=== PATIENT | male | born 1950 | race Caucasian/White ===

== ENCOUNTER → 2016-11-03 | Outpatient (CLI) | payer OTHER | LOC: BMCIMAGING 10:51 | PROVIDERS: ATTEND Internal Medicine | DX: R06.02 Shortness of breath (principal) ==

== ENCOUNTER → 2016-11-10 | Outpatient (CLI) | payer OTHER | LOC: BHFA 10:45 | PROVIDERS: ATTEND Internal Medicine Cardiovascular Disease | DX: R06.02 Shortness of breath (principal) ==

== ENCOUNTER → 2017-02-04 | Outpatient (CLI) | payer OTHER | LOC: BHFA 13:00 | PROVIDERS: ATTEND Internal Medicine Critical Care Medicine | DX: J45.909 Unspecified asthma, uncomplicated (principal) | CPT/HCPCS: 94060; 94070; 94726; 94729; J7674 ==

== ENCOUNTER → 2017-02-05 | Outpatient (CLI) | payer OTHER | LOC: FIMAGING 09:43 | PROVIDERS: ATTEND Internal Medicine | DX: R10.11 Right upper quadrant pain (principal); K76.0 Fatty (change of) liver, not elsewhere classified ==

== ENCOUNTER 2017-02-12 17:36 | Emergency (ER) | payer OTHER ==
--- NOTE | 2017-02-12 17:53 | EDPHY ---
H & P Stated Complaint: right side abdominal pain Time Seen by Provider: 02/12/17 17:52 HPI/ROS: CHIEF COMPLAINT: Abdominal pain HISTORY OF PRESENT ILLNESS: The patient presents to the ED with a 2 day history of acute right-sided abdominal pain. The patient has had a history of mild chronic abdominal pain over the past several months. The patient reports that over the past day he has had some chills. He denies nausea, vomiting or diarrhea. The patient denies prior history of significant abdominal surgery. The patient denies history of significant drug or alcohol use. Patient reports that his symptoms are currently mild in nature. His pain appears to be localized to the right lower quadrant. REVIEW OF SYSTEMS: A comprehensive 10 point review of systems is otherwise negative aside from elements mentioned in the history of present illness. Source: Patient Exam Limitations: No limitations - Personal History Current Tetanus Diphtheria and Acellular Pertussis (TDAP): Yes - Medical/Surgical History Hx Asthma: No Hx Chronic Respiratory Disease: Yes Hx Diabetes: No Hx Cardiac Disease: Yes Hx Renal Disease: No Hx Cirrhosis: No Hx Alcoholism: No Hx HIV/AIDS: No Hx Splenectomy or Spleen Trauma: No Other PMH: fatty live, high cholesterol, HTN , - Social History Smoking Status: Former smoker - Physical Exam Exam: General Appearance: Alert, no distress Eyes: Pupils equal and round no pallor or injection ENT, Mouth: Mucous membranes moist Respiratory: There are no retractions, lungs are clear to auscultation Cardiovascular: Regular rate and rhythm Gastrointestinal: Mild tenderness to deep palpation in the right lower quadrant , no peritoneal signs, no rebound, no guarding Neurological: A&O, normal motor function, normal sensory exam, normal cranial nerves Skin: Warm and dry, no rashes Musculoskeletal: Neck is supple nontender Extremities: symmetrical, full range of motion Constitutional: Initial Vital Signs Temperature (C) 36.5 C 02/12/17 17:44 Heart Rate 71 02/12/17 17:44 Respiratory Rate 16 02/12/17 17:44 Blood Pressure 194/103 H 02/12/17 17:44 O2 Sat (%) 99 02/12/17 17:44 O2 Delivery Mode Room Air Allergies/Adverse Reactions: No Known Allergies Allergy (Unverified 05/19/10 07:57) Home Medications: Medication Instructions Recorded Hydrocodone Bit/Acetaminophen 1 tab PO Q4-6PRN #15 tab 09/10/09 [LORTAB5/325] LORazepam 09/10/09 Lexapro 09/10/09 Famciclovir [Famvir 500 mg] 500 mg PO BID 7 Days 05/19/10 Feurocet 05/19/10 Hydrocodone Bit/Acetaminophen 1 each PO Q3-4PRN PRN #25 tablet 05/19/10 [Vicodin 5-500 Tablet] Gemfibrozil 02/12/17 Ibuprofen [Motrin (*)] 600 mg PO Q6PRN 02/12/17 Medical Decision Making - Diagnostics Imaging Results: Imaging Impressions Abdomen CT 02/12/17 18:18 Impression: 1. No acute findings in the abdomen or pelvis. 2. Constipation 3. Moderate hiatal hernia. 4. Fatty liver 5. Additional findings as above.. Findings discussed with Dr. Ignacio Hylton on February 12, 2017 at 1940 hours. ED Course/Re-evaluation: The patient presents to the ED for evaluation of acutely worsening chronic abdominal pain. Patient is afebrile and has stable vital signs. The patient's laboratory studies and urinalysis are unremarkable. Given the patient's tenderness, he was taken for CT scan of the abdomen pelvis which demonstrates no evidence of acute disease specifically no evidence of appendicitis, perforation, obstruction or diverticulitis. The patient did have serial examinations performed by myself in the ED. At this point time the etiology of this pain is somewhat uncertain. I do feel that he should continue to work with his primary care provider for evaluation of the symptoms. A referral to Gastroenterology may be indicated. The patient is instructed to return to the ED for markedly worsening symptoms or other concerns. Patient did receive IV morphine while in the emergency department. He also received a L of normal saline. Differential Diagnosis: Differential diagnosis considered includes pancreatitis, perforation, obstruction, gastritis - Data Points Laboratory Results: Laboratory Results 02/12/17 17:53 02/12/17 17:53 02/12/17 02/12/17 02/12/17 18:30 17:53 17:53 WBC 5.83 10^3/uL 10^3/uL (3.80-9.50) RBC 4.88 10^6/uL 10^6/uL (4.40-6.38) Hgb 12.0 g/dL L g/dL (13.7-17.5) Hct 38.9 % L % (40.0-51.0) MCV 79.7 fL L fL (81.5-99.8) MCH 24.6 pg L pg (27.9-34.1) MCHC 30.8 g/dL L g/dL (32.4-36.7) RDW 17.4 % H % (11.5-15.2) Plt Count 376 10^3/uL 10^3/uL (150-400) MPV 10.2 fL fL (8.7-11.7) Neut % (Auto) 53.9 % % (39.3-74.2) Lymph % (Auto) 32.8 % % (15.0-45.0) Crook % (Auto) 10.5 % % (4.5-13.0) Eos % (Auto) 2.1 % % (0.6-7.6) Baso % (Auto) 0.5 % % (0.3-1.7) Nucleat RBC Rel Count 0.0 % % (0.0-0.2) Absolute Neuts (auto) 3.15 10^3/uL 10^3/uL (1.70-6.50) Absolute Lymphs (auto) 1.91 10^3/uL 10^3/uL (1.00-3.00) Absolute Monos (auto) 0.61 10^3/uL 10^3/uL (0.30-0.80) Absolute Eos (auto) 0.12 10^3/uL 10^3/uL (0.03-0.40) Absolute Basos (auto) 0.03 10^3/uL 10^3/uL (0.02-0.10) Absolute Nucleated RBC 0.00 10^3/uL 10^3/uL (0-0.01) Immature Gran % 0.2 % % (0.0-1.1) Immature Gran # 0.01 10^3/uL 10^3/uL (0.00-0.10) Sodium 140 mEq/L mEq/L (134-144) Potassium 4.2 mEq/L mEq/L (3.5-5.2) Chloride 103 mEq/L mEq/L (97-110) Carbon Dioxide 23 mEq/l mEq/l (22-31) Anion Gap 14 mEq/L mEq/L (8-16) BUN 24 mg/dL H mg/dL (7-23) Creatinine 0.9 mg/dL mg/dL (0.7-1.3) Estimated GFR > 60 Glucose 105 mg/dL H mg/dL (70-100) Calcium 9.6 mg/dL mg/dL (8.5-10.4) Total Bilirubin 0.5 mg/dL mg/dL (0.1-1.4) Conjugated Bilirubin 0.3 mg/dL mg/dL (0.0-0.5) Unconjugated Bilirubin 0.2 mg/dL mg/dL (0.0-1.1) AST 25 IU/L IU/L (17-59) ALT 36 IU/L IU/L (21-72) Alkaline Phosphatase 75 IU/L IU/L (38-126) Total Protein 8.3 g/dL H g/dL (6.3-8.2) Albumin 5.2 g/dL H g/dL (3.5-5.0) Lipase 104.0 IU/L IU/L (23-300) Urine Color YELLOW Urine Appearance CLEAR Urine pH 7.0 (5.0-7.5) Ur Specific [place] 1.011 (1.002-1.030) Urine Protein NEGATIVE (NEGATIVE) Urine Ketones NEGATIVE (NEGATIVE) Urine Blood NEGATIVE (NEGATIVE) Urine Nitrate NEGATIVE (NEGATIVE) Urine Bilirubin NEGATIVE (NEGATIVE) Urine Urobilinogen NEGATIVE EU EU (0.2-1.0) Ur Leukocyte Esterase NEGATIVE (NEGATIVE) Urine RBC NONE SEEN /hpf /hpf (0-3) Urine WBC 1-3 /hpf /hpf (0-3) Ur Epithelial Cells NONE SEEN /lpf /lpf (NONE-1+) Urine Glucose NEGATIVE (NEGATIVE) Medications Given: Discontinued Medications Morphine Sulfate (Morphine) 4 mg IVP EDNOW ONE Stop: 02/12/17 19:35 Last Admin: 02/12/17 19:35 Dose: 4 mg Ondansetron HCl (Zofran) 4 mg IVP EDNOW ONE Stop: 02/12/17 19:35 Last Admin: 02/12/17 19:30 Dose: 4 mg Departure - Departure Disposition: Home, Routine, Self-Care Clinical Impression: Abdominal pain Condition: Good Instructions: Abdominal Pain (ED) Additional Instructions: Sometimes we are unable to diagnose an obvious cause of abdominal pain in the Emergency Department. Based upon our evaluation today, we see no obvious explanation for your pain. Because more serious conditions can be difficult to diagnose early in the course of their presentation, we ask that you return to the Emergency Department in 8-12 hours for a recheck if you are still having pain. This is necessary to exclude the development of a more serious condition such as appendicitis or other intra-abdominal emergency. In the event your pain markedly increases before that time or you develop intractable vomiting or fever return to the Emergency Department immediately. Referrals: Killian Gupta MD [Primary Care Provider] - As per Instructions
[2017-02-12 18:03] LABS: % IMMATURE GRANULYOCYTES 0.2 % (0.0-1.1); ABSOLUTE IMMATURE GRANULOCYTES 0.01 10^3/uL (0.00-0.10); ADD DIFF? NO; ADD MORPH? NO; ADD SCAN? NO; ATYPICAL LYMPHOCYTE FLAG 10 (0-99); FRAGMENT RBC FLAG 20 (0-99); HEMATOCRIT 38.9 % (40.0-51.0); LEFT SHIFT FLG 0 (0-99); LIPEMIA HEMOLYSIS FLAG 80 (0-99); MEAN CELL HEMOGLOBIN 24.6 pg (27.9-34.1); MEAN CELL HEMOGLOBIN CONCENTR. 30.8 g/dL (32.4-36.7); MEAN CELL VOLUME 79.7 fL (81.5-99.8); MEAN PLATELET VOLUME 10.2 fL (8.7-11.7); PLATELET CLUMPS FLAG 10 (0-99); PLATELET COUNT 376 10^3/uL (150-400); RED BLOOD CELL COUNT 4.88 10^6/uL (4.40-6.38); RED CELL DISTRIBUTION WIDTH 17.4 % (11.5-15.2)
[2017-02-12 18:16] LABS: ALANINE AMINOTRANSFERASE 36 IU/L (21-72); ALBUMIN 5.2 g/dL (3.5-5.0); ALKALINE PHOSPHATASE 75 IU/L (38-126); ANION GAP 14 mEq/L (8-16); ASPARTATE AMINOTRANSFERASE 25 IU/L (17-59); BILIRUBIN,TOTAL 0.5 mg/dL (0.1-1.4); BILIRUBIN-CONJUGATED 0.3 mg/dL (0.0-0.5); BILIRUBIN-UNCONJUGATED 0.2 mg/dL (0.0-1.1); CALCIUM 9.6 mg/dL (8.5-10.4); CARBON DIOXIDE 23 mEq/l (22-31); CHLORIDE 103 mEq/L (97-110); CREATININE 0.9 mg/dL (0.7-1.3); GLOMERULAR FILTRATION RATE > 60; GLUCOSE 105 mg/dL (70-100); POTASSIUM 4.2 mEq/L (3.5-5.2); SODIUM 140 mEq/L (134-144); TOTAL PROTEIN 8.3 g/dL (6.3-8.2)
[2017-02-12] MEDS ORDERED: IOPAMIDOL (ISOVUE-300) 100 ML BTL ONE (18:26)
[2017-02-12 18:43] LABS: COLOR YELLOW; LEUKOCYTE ESTERASE,URINE NEGATIVE (NEGATIVE); NITRITE,URINE NEGATIVE (NEGATIVE)
[2017-02-12 18:50] LABS: RBC,URINE NONE SEEN /hpf (0-3)
[2017-02-12] MEDS ORDERED: ONDANSETRON 4 MG/2 ML VIAL ONE (19:25)
[2017-02-12] MEDS ORDERED: ONDANSETRON 4 MG/2 ML VIAL IVP ONE (19:34)
--- NOTE | 2017-02-12 20:20 | CPEKG ---
Heart Rate: 64 RR Interval: 938 P-R Interval: 168 QRSD Interval: 92 QT Interval: 424 QTC Interval: 438 P Mead: 43 QRS Mead: -1 T Wave Mead: 31 EKG Severity - BORDERLINE ECG - EKG Impression: SINUS RHYTHM EKG Impression: PROBABLE LEFT ATRIAL ABNORMALITY Electronically Signed By: Ignacio Hylton 12-Feb-2017 22:16:12
[2017-02-12 21:36] VITALS: O2SAT 95
[2017-02-12 21:37] VITALS: BP 148/81; PULSE 65; RESP 18; TEMP 97.9
[2017-02-15 17:18] LABS: % SATURATION 7 % (20-55); TOTAL IRON BINDING CAPACITY 518 ug/dL (260-490)
[2017-02-15 17:32] LABS: FERRITIN - BCH 9.1 ng/mL (17.9-464.0)
== END 2017-02-12 21:37 | disposition home or self-care (01) ==
DX: R10.31 Right lower quadrant pain (principal); I10 Essential (primary) hypertension; Z87.891 Personal history of nicotine dependence
CPT/HCPCS: 74177; 93005; 96374; 96375; 99285; J2405; Q9967

== ENCOUNTER 2017-02-26 08:39 | Day surgery (SDC) | payer OTHER ==
[2017-02-26] MEDS ORDERED: PROPOFOL/EMULSION 500 MG/50 ML BOTTLE IV ONE (09:01)
[2017-02-26] MEDS ORDERED: LR 1,000 ML IV ONE (09:02)
--- NOTE | 2017-02-26 09:24 | PDANEPAE ---
ANE History of Present Illness 67 yo M w/ anemia, RUQ pain, here for EGD/COLO ANE Past Medical History - Cardiovascular History Hx Hypertension: No Hx CHF / Valvular Disease: No - Pulmonary History Hx COPD: No Hx Asthma/Reactive Airway Disease: No Hx Oxygen in Use at Home: No - Endocrine History Hx Diabetes: No - Chronic Pain History Chronic Pain: Yes ANE Review of Systems - Exercise capacity Exercise capacity: >=4 METS - Systems Gastrointestinal: Reports: abdominal pain Neurological: Reports: anxiety, other (PTSD) ANE Patient History - Allergies Allergies/Adverse Reactions: No Known Allergies Allergy (Unverified 05/19/10 07:57) - Home Medications Home medications: home medication list seen and reviewed Home Medications: LORazepam 09/10/09 [Last Taken Unknown] Lexapro 09/10/09 [Last Taken Unknown] Feurocet 05/19/10 [Last Taken Unknown] Gemfibrozil 02/12/17 [Last Taken Unknown] Ibuprofen [Motrin (*)] 600 mg PO Q6PRN 02/12/17 [Last Taken Unknown] - NPO status NPO Since - Liquids (Date): 02/25/17 NPO Since - Liquids (Time): 21:00 NPO Since - Solids (Date): 02/25/17 NPO Since - Solids (Time): 21:00 - Anes Hx Anes Hx: no prior problems - Smoking Hx Smoking Status: Former smoker - Alcohol Use Alcohol Use: None - Family Anes Hx Family Anes Hx: none ANE Labs/Vital Signs - Vital Signs Blood Pressure: 180/90 Heart Rate: 71 Respiratory Rate: 16 O2 Sat (%): 92 Height: 172.72 cm Weight: 79.379 kg ANE Physical Exam - Airway Neck exam: FROM Mallampati Score: Class 1 Mouth exam: normal dental/mouth exam - Pulmonary Pulmonary: no respiratory distress, clear to auscultation - Cardiovascular Cardiovascular: regular rate and rhythym, no murmur, rub, or gallop - ASA Status ASA Status: II ANE Anesthesia Plan Anesthesia Plan: MAC Urgent/Emergent Case: Tanesha zaragoza completed preop but documented later for safe timely pt care
[2017-02-26] MEDS ORDERED: NALOXONE HCL 0.4 MG/ML INJ IVP PRN (09:26)
[2017-02-26] MEDS ORDERED: ACETAMINOPHEN 500 MG TAB PO PRN (09:26)
[2017-02-26] MEDS ORDERED: ONDANSETRON 4 MG/2 ML VIAL IVP PRN (09:26)
[2017-02-26] MEDS ORDERED: PROPOFOL 200 MG/20 ML VIAL ONE (09:43)
[2017-02-26 11:18] VITALS: RESP 16
[2017-02-26 11:26] VITALS: PULSE 61; TEMP 97.9
[2017-02-26 11:32] VITALS: BP 143/81; O2SAT 99
--- NOTE | 2017-02-26 11:36 | GPN ---
[f rep st] PROCEDURE NOTE DATE OF PROCEDURE: 02/26/2017 PROCEDURE: Colonoscopy with biopsy. INDICATION: The patient is a 67-year-old male who presents for screening colonoscopy. CONSENT: Risks, benefits, and alternatives of the procedure were discussed in great detail with the patient. Risk of infection, bleeding, perforation and sedation were discussed. All questions answered and informed was obtained. MEDICATIONS: Propofol. Please see Anesthesia record for details. ESTIMATED BLOOD LOSS: Insignificant. COLONOSCOPIC EVALUATION: A rectal exam was performed and no palpable masses were felt. The Olympus adult colonoscope was introduced in the rectum and advanced to cecum where ileocecal valve and appendiceal orifice were seen. The terminal ilium was intubated and was normal. The quality of prep was good. The colonic mucosa was carefully examined on both insertion and withdrawal of the scope. Two 2-3 mm, sessile polyps were seen in the cecum and in the ascending colon. Both of the polyps were removed by excisional biopsies. Large internal hemorrhoids were noted on retroflexion. IMPRESSION: 1. Colonic polyps x2, status post removal. 2. Hemorrhoids. RECOMMENDATIONS: 1. Follow up on biopsy results. 2. Fiber supplementation. 3. Repeat colonoscopy in 5 years if adenoma,. 10 years if hyperplastic. /[id number]/MODL MTDD
--- NOTE | 2017-02-26 12:11 | GPN ---
[f rep st] PROCEDURE NOTE DATE OF PROCEDURE: 02/26/2017 PROCEDURE: Esophagogastroduodenoscopy with biopsy. INDICATION: The patient is a 67-year-old male who presents for evaluation of right upper quadrant abdominal pain as well as iron-deficiency anemia. CONSENT: The risks, benefits, and alternatives of the procedure were discussed in great detail with the patient. The risk of infection, bleeding, perforation , and sedation were discussed. All questions were answered and informed consent was obtained. MEDICATIONS: Propofol. Please see anesthesiology record for details. ESTIMATED BLOOD LOSS: Insignificant. ESOPHAGOGASTRODUODENOSCOPY EXAMINATION: The Olympus upper endoscope was inserted into his mouth and advanced to the esophagus. The proximal, mid, and distal esophagus were normal in appearance. He was noted to have LA Grade B esophagitis. Biopsies taken. The stomach was entered and closely examined including retroflexed views of the angularis, cardia, and fundus. A large hiatal hernia was seen on retroflexion. The mucosa of the antrum and body was erythematous in a patchy distribution, and biopsies were taken. The duodenal bulb and second portion of the duodenum were normal in appearance. A biopsy was taken to rule out celiac sprue. IMPRESSION: 1. LA Grade B esophagitis status post biopsy. 2. Large hiatal hernia. 3. Gastritis, status post biopsy. 4. Biopsy taken to rule out celiac sprue. RECOMMENDATIONS: 1. Follow up on biopsy results. 2. PPI therapy twice a day. 3. Proceed with colonoscopy. 4. Repeat EGD dependent on biopsy results. /[id number]/MODL MTDD
--- NOTE | 2017-02-26 12:21 | POSTANESTH ---
Post Anesthetic Evaluation Cardiovascular Status: Similar to Pre-Op Cond Respiratory Status: Normal, Stable, Similar to Pre-op Cond. Level of Consciousness/Mental Status: Can Participate in Eval, Alert and Oriented Pain Control: Adequate, Prn Tx Ordered Nausea/Vomiting Control: Adequate, Prn Tx Ordered Complications Possibly Related to Anesthesia: None Noted
== END 2017-02-26 11:34 | disposition home or self-care (01) ==
LOC: FSGY 08:39
PROVIDERS: ATTEND Internal Medicine Gastroenterology
PROC: 0DB98ZX Excision of Duodenum, Via Natural or Artificial Opening Endoscopic, Diagnostic (ICD-10-PCS; principal; 2017-02-26 10:00)
PROC: 0DBH8ZX Excision of Cecum, Via Natural or Artificial Opening Endoscopic, Diagnostic (ICD-10-PCS; principal; 2017-02-26 10:00)
PROC: 0DB68ZX Excision of Stomach, Via Natural or Artificial Opening Endoscopic, Diagnostic (ICD-10-PCS; principal; 2017-02-26 10:00)
PROC: 0DBE8ZX Excision of Large Intestine, Via Natural or Artificial Opening Endoscopic, Diagnostic (ICD-10-PCS; principal; 2017-02-26 10:00)
PROC: 0DB58ZX Excision of Esophagus, Via Natural or Artificial Opening Endoscopic, Diagnostic (ICD-10-PCS; principal; 2017-02-26 10:00)
DX: K20.9 Esophagitis, unspecified (principal); K29.70 Gastritis, unspecified, without bleeding; D50.9 Iron deficiency anemia, unspecified; K63.5 Polyp of colon; K64.8 Other hemorrhoids; K44.9 Diaphragmatic hernia without obstruction or gangrene
CPT/HCPCS: J2704

== ENCOUNTER 2017-08-13 14:02 | Emergency (ER) | payer OTHER ==
--- NOTE | 2017-08-13 14:30 | EDPHY ---
H & P Stated Complaint: RUQ , SUDDEN ONSET 1.5 HRS [employer] - Personal History Current Tetanus Diphtheria and Acellular Pertussis (TDAP): Yes - Medical/Surgical History Hx Asthma: No Hx Chronic Respiratory Disease: Yes Hx Diabetes: No Hx Cardiac Disease: Yes Hx Renal Disease: No Hx Cirrhosis: No Hx Alcoholism: No Hx HIV/AIDS: No Hx Splenectomy or Spleen Trauma: No Other PMH: fatty liver, high cholesterol, HTN, osteoarthritis, FEET AND HAND SURGERY, GI ISSUES/IBS, ANXIETY - Social History Smoking Status: Former smoker HPI/ROS: CHIEF COMPLAINT: Abdominal pain HISTORY OF PRESENT ILLNESS: This patient is a 67 year old male with history of IBS arriving with his complaining of right upper quadrant abdominal pain onset 1.5 hours prior to arrival. The pain began while he was sitting and typing a report, and has waxed and waned since onset though it has remained severe overall. He endorses pain in his right back and chest as well, and has difficulty taking a deep breath due to pain. He denies shortness of breath. He ate oatmeal this morning prior to onset of the pain. His current discomfort presents differently from his usual IBS symptoms. The patient denies vomiting, diarrhea, constipation, hematuria, fever, or other associated symptoms. REVIEW OF SYSTEMS: A ten point review of systems was performed and is negative with the exception of the items mentioned in the HPI. Past medical history: 1. IBS 2. High triglycerides 3. Osteoarthritis. PMH reviewed. Patient had a colonoscopy in February which revealed polyps and hemorrhoids, otherwise negative. Past surgical history: Denies. Family history: Noncontributory. Social history: at bedside. . Lives in [place]. Retired psychologist. General Appearance: Alert. Vital signs reviewed. Blood pressure 138/79, temperature 35.8degrees at triage. Eyes: Pupils equal and round, no conjunctival injection, no discharge. Anicteric. ENT, Mouth: Mucous membranes are moist, no oropharyngeal erythema or edema. Neck: No lymphadenopathy, supple. Respiratory: Lungs are clear to auscultation; no wheezes, rales, or rhonchi. Cardiovascular: Regular rate and rhythm; no murmur, rub, or gallop. Gastrointestinal: Right upper quadrant and midepigastric tenderness with voluntary guarding. Abdomen without masses or organomegaly, bowel sounds normal. Skin: Warm and dry, no rashes on exposed skin, normal color. Back: Right flank tenderness. Nontender to palpation over the thoracolumbar spine. Extremities: No lower extremity edema, no calf tenderness or swelling. Neurological: Alert and oriented. Moving all four extremities easily and equally. Psychiatric: Normal affect. (Sarah Horowitz) Constitutional: Initial Vital Signs Temperature (C) 35.8 C L 08/13/17 14:16 Heart Rate 65 08/13/17 14:16 Respiratory Rate 18 08/13/17 14:16 Blood Pressure 138/79 H 08/13/17 14:16 O2 Sat (%) 92 08/13/17 14:16 O2 Delivery Mode Room Air Allergies/Adverse Reactions: No Known Allergies Allergy (Unverified 05/19/10 07:57) Home Medications: Medication Instructions Recorded Hydrocodone Bit/Acetaminophen 1 tab PO Q4-6PRN #15 tab 09/10/09 [LORTAB5/325] LORazepam 09/10/09 Feurocet 05/19/10 Hydrocodone Bit/Acetaminophen 1 each PO Q3-4PRN PRN #25 tablet 05/19/10 [Vicodin 5-500 Tablet] Cymbalta 08/13/17 Dicyclomine 08/13/17 Medical Decision Making ED Course/Re-evaluation: 5:30 p.m.-CT scan results are unremarkable, read by Dr. Rubin Christopher. The results were discussed with the patient and his . He is currently pain free after IV Toradol. Abdomen is soft and nontender. Possible etiologies of pain discussed. He will follow up with his primary care physician for further evaluation and possibly a HIDA scan if he continues to have right upper quadrant pain. He will return to the emergency department for worsening pain or any concerns. (Ping Cash) Patient is to receive Dilaudid 1 mg IV and 1 L normal saline intravenously. He had some pain relief with the Dilaudid but continued with 8/10 right flank and right upper quadrant pain. He was tender in the right upper quadrant and midepigastrium on exam with some voluntary guarding initially. He is mildly hypertensive in the emergency department. He is aware of this. Labs reviewed. White blood cell count is mildly elevated at just under 12,000. Initial concern is for cholecystitis. He is not febrile. Lipase is normal. AST is mildly elevated at 76. Total bilirubin is normal with conjugated bili elevated at 0.9. Labs are not particularly concerning for cholecystitis, however he continues right upper quadrant tenderness. Right upper quadrant ultrasound was performed and reported to me. It shows a 4 mm gallstone that appears to be adhering to the gallbladder wall. Gallbladder wall is not thickened. The common bile duct is normal caliber at 7 mm. Patient re-interviewed re-examined at 4:15 p.m.. He has received Toradol 15 mg IV. His pain is much improved with this medication. On examination he has some mild tenderness of the right upper quadrant and right flank. CT scan to assess for ureterolithiasis has been ordered. His care will be transferred to Dr. Cash at 4:30 p.m.. (Sarah Horowitz) Differential Diagnosis: Abdominal pain including but not limited to appendicitis, cholecystitis, gastritis/peptic ulcer disease, bowel obstruction, perforated viscus, constipation, and urinary tract infection. (Sarah Horowitz) - Data Points Laboratory Results: Laboratory Results 08/13/17 14:41 08/13/17 14:41 Medications Given: Discontinued Medications Hydromorphone HCl (Dilaudid) 0.5 mg IVP EDNOW ONE Stop: 08/13/17 14:46 Last Admin: 08/13/17 15:00 Dose: 0.5 mg Hydromorphone HCl (Dilaudid) 0.5 mg IVP EDNOW ONE Stop: 08/13/17 14:58 Last Admin: 08/13/17 15:01 Dose: 0.5 mg Sodium Chloride (Ns) 1,000 mls @ 0 mls/hr IV EDNOW ONE; Wide Open PRN Reason: Protocol Stop: 08/13/17 14:46 Last Admin: 08/13/17 14:54 Dose: 1,000 mls Ketorolac Tromethamine (Toradol) 15 mg IVP EDNOW ONE Stop: 08/13/17 15:17 Last Admin: 08/13/17 15:21 Dose: 15 mg Departure - Departure Disposition: Home, Routine, Self-Care Clinical Impression: Abdominal pain Qualifiers: Abdominal location: right upper quadrant Qualified Code(s): R10.11 - Right upper quadrant pain Condition: Good Instructions: Abdominal Pain (ED) Additional Instructions: Sometimes we are unable to diagnose an obvious cause of abdominal pain in the Emergency Department. Based upon our evaluation today, we see no obvious explanation for your pain. Because more serious conditions can be difficult to diagnose early in the course of their presentation, we ask that you return to the Emergency Department in 12-24 hours for a recheck if you are still having pain. This is necessary to exclude the development of a more serious condition such as appendicitis or other intra-abdominal emergency. In the event your pain markedly increases before that time or you develop intractable vomiting or fever return to the Emergency Department immediately. Stay on a bland diet for 24 hr. Referrals: Killian Gupta MD [Primary Care Provider] - 2-3 days, call for appt. Report Scribed for: Sarah Horowitz Report Scribed by: Aspen Doll Date of Report: 08/13/17 Time of Report: 14:51 Physician Review and Approval Statement: 08/13/17 14:30 Portions of this note were transcribed by the medical economics consultant. I, Dr. Sarah Horowitz, personally performed the history, physical exam, and medical decision- making; and confirmed the accuracy of the information in the transcribed note. ( Sarah Horowitz)
[2017-08-13] MEDS ORDERED: NS 1,000 ML IV ONE (14:45)
[2017-08-13] MEDS ORDERED: HYDROmorphONE/DILAUDID 1 MG/ML INJ IVP ONE ×2 (14:45→14:57)
[2017-08-13 14:50] LABS: % IMMATURE GRANULYOCYTES 0.4 % (0.0-1.1); ABSOLUTE IMMATURE GRANULOCYTES 0.05 10^3/uL (0.00-0.10); ADD DIFF? NO; ADD MORPH? NO; ADD SCAN? NO; ATYPICAL LYMPHOCYTE FLAG 0 (0-99); FRAGMENT RBC FLAG 0 (0-99); HEMATOCRIT 45.5 % (40.0-51.0); HEMOGLOBIN 15.7 g/dL (13.7-17.5); LEFT SHIFT FLG 0 (0-99); LIPEMIA HEMOLYSIS FLAG 90 (0-99); MEAN CELL HEMOGLOBIN CONCENTR. 34.5 g/dL (32.4-36.7); MEAN CELL VOLUME 95.6 fL (81.5-99.8); MEAN PLATELET VOLUME 10.2 fL (8.7-11.7); PLATELET CLUMPS FLAG 0 (0-99); PLATELET COUNT 244 10^3/uL (150-400); RED BLOOD CELL COUNT 4.76 10^6/uL (4.40-6.38); RED CELL DISTRIBUTION WIDTH 14.1 % (11.5-15.2)
[2017-08-13 15:01] LABS: ALANINE AMINOTRANSFERASE 63 IU/L (21-72); ALBUMIN 4.3 g/dL (3.5-5.0); ALKALINE PHOSPHATASE 54 IU/L (38-126); ANION GAP 14 mEq/L (8-16); ASPARTATE AMINOTRANSFERASE 76 IU/L (17-59); BILIRUBIN,TOTAL 1.4 mg/dL (0.1-1.4); BILIRUBIN-CONJUGATED 0.9 mg/dL (0.0-0.5); BILIRUBIN-UNCONJUGATED 0.5 mg/dL (0.0-1.1); CALCIUM 9.4 mg/dL (8.5-10.4); CARBON DIOXIDE 25 mEq/l (22-31); CHLORIDE 100 mEq/L (97-110); CREATININE 1.1 mg/dL (0.7-1.3); GLOMERULAR FILTRATION RATE > 60; GLUCOSE 122 mg/dL (70-100); POTASSIUM 4.2 mEq/L (3.5-5.2); SODIUM 139 mEq/L (134-144); TOTAL PROTEIN 6.7 g/dL (6.3-8.2)
[2017-08-13] MEDS ORDERED: KETOROLAC 15 MG/1 ML SDV IVP ONE (15:16)
[2017-08-13 16:31] LABS: LEUKOCYTE ESTERASE,URINE NEGATIVE (NEGATIVE); NITRITE,URINE NEGATIVE (NEGATIVE)
[2017-08-13 16:33] LABS: COLOR AMBER
[2017-08-13 17:52] VITALS: BP 138/84; PULSE 76; RESP 16; TEMP 98.4; O2SAT 95
== END 2017-08-13 17:53 | disposition home or self-care (01) ==
DX: R10.11 Right upper quadrant pain (principal); I10 Essential (primary) hypertension; E86.9 Volume depletion, unspecified; Z87.891 Personal history of nicotine dependence
CPT/HCPCS: 74176; 76705; 96361; 96374; 96375; 99285; J1170; J1885

== ENCOUNTER → 2017-08-20 | Outpatient (CLI) | payer OTHER | LOC: FIMAGING 08:34 | PROVIDERS: ATTEND Internal Medicine | DX: R10.11 Right upper quadrant pain (principal) | CPT/HCPCS: 78227; A9537 ==

== ENCOUNTER → 2018-03-14 | Outpatient (CLI) | payer OTHER | LOC: FIMAGING 09:21 | PROVIDERS: ATTEND Psychiatry & Neurology Neurology | DX: G43.109 Migraine with aura, not intractable, without status migrainosus (principal); R41.3 Other amnesia ==

== ENCOUNTER 2018-12-16 17:08 | Observation (INO) | payer OTHER ==
[2018-12-16] MEDS ORDERED: NS 1,000 ML IV SCH ×2 (17:15→18:23)
--- NOTE | 2018-12-16 17:40 | GHP ---
[f rep st] HISTORY AND PHYSICAL DATE OF ADMISSION: 12/16/2018 CHIEF COMPLAINT: Severe postoperative pain. HISTORY OF PRESENT ILLNESS: The patient is a 68-year-old male who underwent laparoscopic bilateral i nguinal hernia repairs with mesh, as well as an open umbilical hernia repair earlier today at [facility]. In the PACU, the patient reported experiencing severe pain. Of note, this patient has chronic pain and takes hydrocodone twice daily, as well as 5 mg of Ativan and 5 mg of Valium michelle ly. He had not had any of his medications due to being n.p.o. for surgery. He does not have a fever at this time and his vital signs are stable. A bladder scan was performed in PACU that revealed min imal urine. PAST MEDICAL HISTORY: Acute bacterial prostatitis, allergic rhinitis, BPH, bronchitis, GERD, hyperte nsion, memory deficit, migraines, obstructive sleep apnea, osteoporosis, peripheral neuropathy. PAST SURGICAL HISTORY: Multiple orthopedic surgeries. Hernia surgery earlier today. MEDICATIONS: Ativan 1 mg tablet as needed up to 5 times per day, [id number] a s needed for migraines, Cozaar 100 mg, Crestor 10 mg, Cymbalta 60 mg, diazepam 5 mg, dicyclomine 10 m g, Imitrex 50 mg as needed for migraines, Lidoderm patch, Lunesta 2 mg, Perry 5/325 twice a day, omep razole 40 mg, trazodone 50 mg, Viagra 50 mg. ALLERGIES: No known drug allergies. FAMILY MEDICAL HISTORY: Hypercholesterolemia. SOCIAL HISTORY: The patient is a former smoker, but quit several years ago. He drinks alcohol daily . REVIEW OF SYSTEMS: Ten-point review of systems was performed and is negative aside from what is in t he HPI. PHYSICAL EXAM: GENERAL: A well-appearing male in acute distress due to pain. HEENT: Normocephalic , atraumatic. No gross hearing deficits. Mucous membranes are moist. PERRLA. CARDIAC: Regular ra te and rhythm. No clicks, murmurs, or rubs. CHEST: Clear to auscultation bilaterally. No crackles , rales, or rhonchi. ABDOMEN: Soft, tender to palpation in the lower abdomen. Hernia repairs remai n intact. Nondistended. SKIN: Warm and dry. No rashes or jaundice. MUSCULOSKELETAL: Moves all e xtremities equally. PSYCHIATRIC: Appropriate mood and affect. NEUROLOGICAL: Alert and oriented. IMPRESSION AND PLAN: This is a 68-year-old male who underwent laparoscopic bilateral inguinal hernia repairs and open umbilical hernia repair earlier today at [facility]. Upon waking up in the PACU, the patient experienced severe pain in his lower abdomen. Two doses of Dilaudid were given, a s well as 5 mg of IV Valium. This brought his pain down from a 9 to a 7. However, he wishes to be a dmitted for postoperative pain control. Our plan is to admit him for IV hydration, IV pain medicatio n. If his pain persists, consider a CT scan. /[id number]/MODL
[2018-12-16] MEDS ORDERED: HYDROmorphONE/DILAUDID 1 MG/ML INJ IVP PRN (18:23)
[2018-12-16] MEDS ORDERED: DIAZEPAM 5 MG TAB PO PRN (20:32)
[2018-12-16] MEDS ORDERED: OXYCODONE HCL 5 MG PO PRN (20:32)
[2018-12-16] MEDS ORDERED: MAGNESIUM HYDROXIDE 30 ML UDCUP PO PRN (20:45)
[2018-12-16] MEDS: ACETAMINOPHEN 325 MG TAB PO PRN (20:56)
[2018-12-16] MEDS: oxyCODONE IR 5 MG TAB PO PRN (20:57)
[2018-12-16] MEDS ORDERED: ACET/CAFFEINE/BUTA FIORICET 1 EACH TAB PO PRN (21:00)
[2018-12-16] MEDS ORDERED: ZOLPIDEM TARTRATE 5 MG TAB PO SCH (21:00)
[2018-12-16] MEDS ORDERED: traZODone 100 MG TAB PO SCH (21:00)
[2018-12-16] MEDS ORDERED: ROSUVASTATIN CALCIUM 10 MG TAB PO SCH (21:00)
[2018-12-16] MEDS ORDERED: DULoxetine 60 MG CAP PO SCH (21:00)
[2018-12-16 21:30] LABS: PLATELET COUNT 216 10^3/uL (150-400)
[2018-12-16] MEDS ORDERED: IOPAMIDOL (ISOVUE-300) 100 ML BTL ONE (22:09)
[2018-12-16] MEDS: LORazepam 1 MG TAB PO SCH (23:22)
[2018-12-17] MEDS: ACETAMINOPHEN 325 MG TAB PO PRN ×2 (01:03→07:39)
[2018-12-17] MEDS: oxyCODONE IR 5 MG TAB PO PRN ×2 (01:03→07:40)
[2018-12-17] MEDS: LORazepam 1 MG TAB PO SCH (06:48)
[2018-12-17 07:22] VITALS: BP 137/76
--- NOTE | 2018-12-17 09:17 | SOAPPROG ---
SOAP Progress Note Assessment/Plan: Assessment: Postop day 1 status post laparoscopic bilateral inguinal hernia repair with mesh Admitted for pain control CT scan showed expected pneumoperitoneum and some fluid. Pain is better controlled today. Can discharge home No heavy lifting pushing pulling greater than 15 lb for 2 weeks Walk daily Regular diet Follow-up with PA or [employer] in 1 week S: Still with discomfort by umbilicus. He does have some fullness in his pelvis. O: General: Pleasant, well-nourished and well-groomed man, appears comfortable lying in bed HENT: Normocephalic, no gross hearing deficits, mucous membranes moist, pupils equal and round, no scleral icterus, on 1 L O2 Lungs: Clear to auscultation bilaterally, No increased work of breathing Cardiac: Regular rate Abdomen: Bowel sounds present, soft and appropriately tender. Incisions clean dry and intact Skin: Warm and dry. Plan: 12/17/18 09:15 Objective: Vital Signs Temp Pulse Resp BP Pulse Ox 36.9 C 74 16 137/76 H 96 12/17/18 07:21 12/17/18 07:21 12/17/18 07:21 12/17/18 07:21 12/17/18 07:21 Laboratory Results 12/16/18 21:15 12/16/18 21:15 12/16/18 12/17/18 12/18/18 05:59 05:59 05:59 Intake Total 1261 Balance 1261 ICD10 Worksheet Patient Problems: Problems Problem Status Onset Abdominal pain Acute
--- NOTE | 2018-12-17 09:51 | ASDISCHSUM ---
Discharge Information Plan Status:Home with No Needs Medically Cleared to Leave: Discharge Date: CM D/C Disposition:Home, Routine, Self-Care ADT D/C Disposition:Home, Routine, Self-Care Projected Discharge Date: Transportation at D/C:Family Discharge Delay Reason: Follow-Up Date: Discharge Slot: Final Diagnosis: Placement Information Patient Contact Information Contact Name:ALESSANDRO Relationship: [address] [facility] City:[place] Alternate Phone: State/Zip Code:[place] [address] Email: Financial Information Financial Class:Medicare Primary Plan Desc:MEDICARE OUTPATIENT Primary Plan Number:[id number] Secondary Plan Desc:[employer] [place] Secondary Plan Number:[id number] Assessment Information LACE LACE Length of stay for Answers: Less than 1 day current admission Acuity / Level of Answers: No Care: Did the patient have an inpatient admission? Comorbidities - select Answers: Other Notes: htn all that apply # of Emergency department Answers: 0 visits in the last 6 months Score: 1 Date Signed: 12/17/2018 09:50 AM Electronically Signed By:Suyapa White Intervention Information
--- NOTE | 2018-12-17 11:12 | GDS ---
[f rep st] DISCHARGE SUMMARY CHIEF COMPLAINT: Severe postoperative pain. REASON FOR ADMISSION: Patient is a 68-year-old male who underwent laparoscopic bilateral inguinal hernia repairs with mesh as well as an open umbilical hernia repair at [facility]. In the postoperative period, patient reported experiencing severe pain and was admitted for better control of his pain. PRIMARY DIAGNOSIS: Acute abdominal pain. SECONDARY DIAGNOSIS: Bilateral laparoscopic hernia repairs, open umbilical hernia repair, chronic pain HOSPITAL COURSE: The patient was admitted for increased pain. CT was performed showing expected pneumoperitoneum, fluid in the abdomen. This was expected secondary to surgery. The patient received increasing doses of narcotic pain medication, which was successful in getting his pain under control. The patient is able to ambulate well independently. Pain is well controlled and tolerating regular diet. CONDITION ON DISCHARGE: Ambulates independently (baseline short distances). Pain well controlled with p.o. pain medication, tolerating diet per normal. NEW MEDICATIONS: The patient is going home with a prescription for Oxycodone, dispense 30. /[id number]/MODL MTDD
--- NOTE | 2018-12-17 11:17 | GDS ---
[f rep st] DISCHARGE SUMMARY REASON FOR ADMISSION: The patient had increasing amounts of pain postoperatively following laparoscopic bilateral inguinal hernia repair with mesh. He was admitted for pain control. PRIMARY DIAGNOSIS: Acute abdominal pain following lap BIH SECONDARY DIAGNOSIS: chronic benzo/opiod dependence HOSPITAL COURSE: Upon admission, the patient had a CT scan which showed appropriate pneumoperitoneum, fluid in the abdomen. This is expected given recent surgery. He received increasing amounts of pain medication which seemed to decrease the amount of pain that he was feeling. Pain was eventually able to be controlled with p.o. pain medication, at which point it was decided that he could be discharged home. CONDITION ON DISCHARGE: Patient ambulates independently. Pain is well controlled with p.o. medication. Diet as tolerated. NEW MEDICATIONS: The patient is going home with a 30-day prescription for p.o. oxycodone /[id number]/MODL MTDD
[2018-12-17] MEDS ORDERED: LOSARTAN POTASSIUM 50 MG TAB PO SCH (18:00)
== END 2018-12-17 10:45 | disposition home or self-care (01) ==
LOC: F1N 18:20
PROVIDERS: ADMIT Surgery; ATTEND Surgery
DX: G89.18 Other acute postprocedural pain (principal); R10.30 Lower abdominal pain, unspecified; G89.29 Other chronic pain; F11.20 Opioid dependence, uncomplicated; N40.0 Benign prostatic hyperplasia without lower urinary tract symptoms; K21.9 Gastro-esophageal reflux disease without esophagitis; I10 Essential (primary) hypertension; R41.3 Other amnesia; G43.909 Migraine, unspecified, not intractable, without status migrainosus; G47.33 Obstructive sleep apnea (adult) (pediatric); M81.0 Age-related osteoporosis without current pathological fracture; G62.9 Polyneuropathy, unspecified; Z87.891 Personal history of nicotine dependence
CPT/HCPCS: 72193; G0378; G0379; Q9967

== ENCOUNTER → 2019-01-23 | Outpatient (CLI) | payer OTHER | LOC: FLAB 14:43 | PROVIDERS: ATTEND Surgery | DX: R14.0 Abdominal distension (gaseous) (principal); K59.00 Constipation, unspecified ==